=== PATIENT | female | born 1935 | race Asian ===

== ENCOUNTER 2018-10-03 21:41 | Emergency (ER) | payer OTHER ==
[~2018-10-03] VITALS: Ht 154.9 cm; Wt 56.2 kg
[2018-10-03 21:49] VITALS: Ht 154.9 cm; Wt 56.2 kg
[2018-10-04 01:08] VITALS: BP 147/67
== END 2018-10-04 01:08 | disposition home or self-care (01) ==
LOC: ED 21:41
DX: S51.012A Laceration without foreign body of left elbow, initial encounter (principal); I10 Essential (primary) hypertension; E11.9 Type 2 diabetes mellitus without complications; W01.0XXA Fall on same level from slipping, tripping and stumbling without subsequent striking against object, initial encounter; Y93.89 Activity, other specified; Y92.89 Other specified places as the place of occurrence of the external cause; Y99.8 Other external cause status
CPT/HCPCS: J2001

== ENCOUNTER 2019-11-29 16:20 | Emergency (ER) | payer OTHER ==
[~2019-11-29] VITALS: Ht 157.5 cm; Wt 54.4 kg
[2019-11-29 16:27] VITALS: Ht 157.5 cm; Wt 54.4 kg
[2019-11-29 18:37] VITALS: BP 149/74
== END 2019-11-29 18:37 | disposition home or self-care (01) ==
LOC: ED 16:20
DX: S09.8XXA Other specified injuries of head, initial encounter (principal); I10 Essential (primary) hypertension; E11.9 Type 2 diabetes mellitus without complications; E78.00 Pure hypercholesterolemia, unspecified; W18.2XXA Fall in (into) shower or empty bathtub, initial encounter; Y93.E1 Activity, personal bathing and showering; Y92.091 Bathroom in other non-institutional residence as the place of occurrence of the external cause; Y99.8 Other external cause status